=== PATIENT | female | born 1960 | race Caucasian/White ===

== ENCOUNTER → 2020-08-19 | Outpatient (CLI) | payer OTHER ==
[~2020-08-19] MED LIST: ACYCLOVIR800 MG PO; ALLERGY SHOTS; ARNUITY ELLIPT50 MCG INH; AZELASTINE137 MCG/0.; CELEBREX200 MG PO; CYMBALTA 30 MG30 MG PO; ESOMEPRAZOLE MA40 MG PO; ESTRACE1 MG PO; GABAPENTIN100 MG PO; LOSARTAN POTASS50 MG PO; MONTELUKAST SOD10 MG PO; NORVASC10 MG PO; TRAMADOL HCL50 MG PO; VITAMIN D21250 MCG PO; ZYRTEC10 M3 PO
== END ==
LOC: RAD 15:18
DX: M25.512 Pain in left shoulder (principal); W19.XXXA Unspecified fall, initial encounter
CPT/HCPCS: 73030